=== PATIENT | male | born 2000 | race Caucasian/White ===

== ENCOUNTER 2019-12-13 22:24 | Inpatient (IN) | payer OTHER ==
[~2019-12-13] VITALS: Ht 177.8 cm; Wt 85.9 kg
[2019-12-13] MEDS ORDERED: PROPOFOL 1,000 MG/100 ML VIAL As Ordered ONE (22:47)
[2019-12-13] MEDS ORDERED: ETOMIDATE INJ 20MG/10ML VIAL IV ONE (22:49)
[2019-12-13] MEDS ORDERED: SUCCINYLCHOLINE INJ 200 MG/10 ML VIAL (J0330) IV ONE (22:50)
[2019-12-13] MEDS: propofoL 1,000 MG in IV 1 EA IV SCH ×2 (22:52→23:00)
[2019-12-13] MEDS: PROPOFOL 1,000 MG/100 ML VIAL IV SCH (23:06)
[2019-12-13 23:10] LABS: ABG BASE EXCESS -3.1 (-2.0-2.0); ABG HCO3 23.1 MEQ/L (22.0-26.0); ABG PARTIAL PRESSURE CO2 45.6 mmHg (35.0-45.0); ABG PARTIAL PRESSURE O2 141.3 mmHg (75.0-100.0); ABG TOTAL CO2 24.5 MEQ/L (22.0-29.0); ABG pH (ARTERIAL) 7.323 UNITS (7.350-7.450)
[2019-12-13 23:11] LABS: ABG O2 SATURATION 98.7 % (95.0-99.0); ABG STANDARD HCO3 21.9 MEQ/L (22.0-26.0)
[2019-12-13 23:13] VITALS: O2SAT 98
[2019-12-13] MEDS ORDERED: CHARCOAL ACTIVATED LIQUID 25 GM/120 ML BTL PO ONE (23:15)
[2019-12-13] MEDS ORDERED: NS 1,000 ML IV ONE (23:15)
[2019-12-13 23:24] LABS: BASO % 0.3 % (0.0-1.0); EOS % 0.6 % (0.0-3.0); HEMATOCRIT 46.2 % (42.0-52.0); HEMOGLOBIN 15.7 g/dl (13.5-17.5); LYMPH # 1.7 10^3/uL (1.5-5.0); LYMPH % 25.3 % (24.0-44.0); MEAN CORPUSCULAR HEMOGLOBIN 30.7 pg (27.0-33.0); MEAN CORPUSCULAR VOLUME 90.4 fl (80.0-96.0); MONO # 0.7 10^3/uL (0.0-0.8); MONO % 9.8 % (0.0-5.0); NEUTROPHILS # 4.3 10^3/uL (1.5-8.5); NEUTROPHILS % 63.6 % (36.0-66.0); PLATELET COUNT, AUTOMATED 267 10^3/uL (150-450); RED BLOOD COUNT 5.11 10^6/uL (4.30-6.10); WHITE BLOOD COUNT 6.8 10^3/uL (4.0-10.0)
[2019-12-13 23:40] LABS: ACETAMINOPHEN LEVEL < 2.0 UG/ML (10.0-30.0); ALBUMIN 4.2 GM/DL (3.2-5.2); ALT/SGPT 22 U/L (12-78); BILIRUBIN,DIRECT 0.2 MG/DL (0.0-0.2); BILIRUBIN,TOTAL 0.7 MG/DL (0.2-1.0); BLOOD UREA NITROGEN 13 MG/DL (7-18); CALCIUM LEVEL 8.4 MG/DL (8.5-10.1); CARBON DIOXIDE LEVEL 26 MEQ/L (21-32); CHLORIDE LEVEL 108 MEQ/L (98-107); CPK CREATINE PHOSPHOKINASE 121 U/L (39-308); CREATININE FOR GFR 1.18 MG/DL (0.70-1.30); ETHYL ALCOHOL (ETHANOL) 0.206 % (0.000-0.010); GLUCOSE, FASTING 82 MG/DL (70-100); SALICYLATE LEVEL < 1.7 MG/DL (5.0-30.0); SODIUM LEVEL 139 MEQ/L (136-145); TOTAL PROTEIN 7.7 GM/DL (6.4-8.2)
--- NOTE | 2019-12-13 23:43 | REPVR ---
PROCEDURE INFORMATION: Exam: XR Chest, 1 View Exam date and time: 12/13/2019 11:09 PM Age: 19 years old Clinical indication: Device placement; Other: Ett TECHNIQUE: Imaging protocol: XR of the chest Views: 1 view. COMPARISON: No relevant prior studies available. FINDINGS: Tubes, catheters and devices: Endotracheal tube lies 3 cm above the evin. Lungs: Lungs are diffusely hypoexpanded. No evidence of pulmonary edema. No focal consolidation or parenchymal lung mass. Mild patchy atelectasis Pleural space: No pleural effusion. No pneumothorax. Heart/Mediastinum: Heart and mediastinal contours are normal, given the degree of inflation. Bones/joints: Osseous structures show no concerning abnormality. Soft tissues: No asymmetry of the extrathoracic soft tissues. IMPRESSION: 1. Hypoexpanded lungs, with increase interstitial markings or atelectasis. 2. Endotracheal tube 3 cm above the evin Electronically signed by: Nolberto Rothman On 12/13/2019 23:44:01 PM
[2019-12-14] VITALS (7 sets, daily range): BP systolic 95–139; BP diastolic 48–66
[2019-12-14 00:05] LABS: AMPHETAMINES LEVEL URINE NEGATIVE (NEGATIVE); BARBITURATES URINE NEGATIVE (NEGATIVE); BENZODIAZEPINES URINE NEGATIVE (NEGATIVE); CANNABINOIDS URINE NEGATIVE (NEGATIVE); COCAINE METABOLITE URINE NEGATIVE (NEGATIVE); METHADONE URINE NEGATIVE (NEGATIVE); OPIATES URINE NEGATIVE (NEGATIVE); PHENCYCLIDINE URINE POSITIVE (NEGATIVE)
[2019-12-14] MEDS ORDERED: PROPOFOL 1,000 MG/100 ML VIAL As Ordered ONE (00:34)
[2019-12-14] MEDS ORDERED: NS 1,000 ML IV SCH (00:51)
[2019-12-14] MEDS ORDERED: MIDAZOLAM INJ 2MG/2ML VIAL (J2250 PER 1MG) IV PRN (01:00)
[2019-12-14] MEDS ORDERED: GLUCAGON INJ 1MG VIAL SC PRN (01:15)
[2019-12-14] MEDS ORDERED: DEXTROSE 50% 50 ML SYRINGE IV PRN (01:15)
[2019-12-14] MEDS ORDERED: GLUCOSE 4GM CHEW TABLET PO PRN (01:15)
[2019-12-14 02:47] LABS: PROTHROMBIN TIME 13.4 SECONDS (11.8-14.0)
[2019-12-14 02:54] LABS: ABG pH (ARTERIAL) 7.321 UNITS (7.350-7.450)
[2019-12-14 02:55] LABS: ABG BASE EXCESS -3.2 (-2.0-2.0); ABG HCO3 23.1 MEQ/L (22.0-26.0); ABG PARTIAL PRESSURE CO2 45.8 mmHg (35.0-45.0); ABG PARTIAL PRESSURE O2 164.9 mmHg (75.0-100.0); ABG STANDARD HCO3 21.9 MEQ/L (22.0-26.0); ABG TOTAL CO2 24.5 MEQ/L (22.0-29.0)
[2019-12-14] MEDS: propofoL 1,000 MG in IV 1 EA IV SCH ×3 (03:11→09:04)
[2019-12-14 05:48] LABS: HEMATOCRIT 45.6 % (42.0-52.0); HEMOGLOBIN 15.2 g/dl (13.5-17.5); MEAN CORPUSCULAR HEMOGLOBIN 30.5 pg (27.0-33.0); MEAN CORPUSCULAR HGB CONC 33.3 g/dl (32.0-36.5); MEAN CORPUSCULAR VOLUME 91.6 fl (80.0-96.0); PLATELET COUNT, AUTOMATED 283 10^3/uL (150-450); RED BLOOD COUNT 4.98 10^6/uL (4.30-6.10); WHITE BLOOD COUNT 6.7 10^3/uL (4.0-10.0)
[2019-12-14] MEDS ORDERED: HEPARIN SOD (PORCINE) 5000UNITS/ML 1ML VIAL/SYRINGE SC SCH (06:00)
[2019-12-14] MEDS: HumaLOG INSULIN (NovoLOG) PER UNIT SC SCH ×2 (06:00)
[2019-12-14 06:29] LABS: ALBUMIN 3.9 GM/DL (3.2-5.2); ALT/SGPT 21 U/L (12-78); BLOOD UREA NITROGEN 12 MG/DL (7-18); CALCIUM LEVEL 8.5 MG/DL (8.5-10.1); CARBON DIOXIDE LEVEL 25 MEQ/L (21-32); CHLORIDE LEVEL 108 MEQ/L (98-107); CHOLESTEROL LEVEL 121 MG/DL (< 200); CPK CREATINE PHOSPHOKINASE 179 U/L (39-308); CREATININE FOR GFR 1.21 MG/DL (0.70-1.30); GLUCOSE, FASTING 97 MG/DL (70-100); LDH LACTATE DEHYDROGENASE 174 U/L (87-241); PHOSPHORUS LEVEL 4.9 MG/DL (2.5-4.9); POTASSIUM SERUM 4.1 MEQ/L (3.5-5.1); SODIUM LEVEL 140 MEQ/L (136-145); TOTAL PROTEIN 6.9 GM/DL (6.4-8.2); TRIGLYCERIDES LEVEL 348 MG/DL (<150)
[2019-12-14] MEDS ORDERED: ALBUTEROL SULFATE 2.5 MG/0.5 ML INH NEB SOLN NEB SCH (08:00)
[2019-12-14] MEDS ORDERED: CHLORHEXIDINE GLUCONATE 0.12 % 15ML UDC (PERIDEX ORAL RINSE) MT SCH (09:00)
[2019-12-14] MEDS ORDERED: PANTOPRAZOLE 40MG VIAL (C9113 PER 1) IV SCH (09:00)
[2019-12-14] MEDS ORDERED: cefTRIAXone SOD 1 GM in D5W MINI-BAG PLUS 50 ML IV SCH (09:00)
[2019-12-14] MEDS ORDERED: MOM 30ML SUSPENSION UDC PO PRN (17:30)
[2019-12-14] MEDS ORDERED: MAALOX 30 ML SUSP *UDC PO PRN (17:30)
[2019-12-14] MEDS ORDERED: ACETAMINOPHEN TAB 650MG DOSE (2X325MG) PO PRN (17:30)
[2019-12-14] MEDS ORDERED: traZODone 50 MG TAB PO PRN (17:30)
--- NOTE | 2019-12-24 14:41 | MHCR ---
DATE OF CONSULTATION: 12/14/2019 This is a consultation note for Dr. Miles, who asked me to see the patient. Chart is reviewed, patient is interviewed. CHIEF COMPLAINT: He has taken an overdose. 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 He was brought in as he was found to be unresponsive apparently, this is after he had taken a considerable amount of alcohol, and overdosed on Coricidin cough tablets, says does not remember much of that. On further inquiry, says had been playing on his [employer], remembers that, says remembers drinking, and somewhat vaguely remembers taking the pills. He thinks he took about 12 pills. He says does not remember much after that, other than waking up in the hospital. Denies he was trying to kill himself. Suggests was trying to get high, and that a friend of his had told him that he could get high using the Coricidin, he says it is not the first time he had used it, had first used it several months ago, and does not remember the last time he did, but not this month, says had never used it with alcohol. Says has been stressed, but suggests these are mostly regular work related stressors. 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 Says may get somewhat anxious or have his mind race when trying to get to sleep. Denies feeling depressed. Appetite has been okay. Says has family, including his mother, in [place], is in contact with her, and she is apparently aware that he is here. He suggests he takes alcohol irregularly, not very often, and that this has never got him into any difficulties. Patient was basically not very responsive when first seen by the clinicians, to the point where he developed respiratory failure, was intubated, and has been extubated earlier today. PAST PSYCHIATRIC HISTORY: No history of inpatient hospitalizations or suicide attempts. Does not see any outpatient therapist or counselor either. SUBSTANCE ABUSE HISTORY: Has never been treated for it, per the patient, but has used Coricidin in the past few months, first used it a few months ago. He does not think he has ever taken these many pills in the past. MEDICAL HISTORY: None significantly, other than this overdose, which required his being intubated. He has just been extubated this morning. FAMILY HISTORY: History of substance abuse. Says has members on his mothers side of the family who have had trouble with alcohol. SOCIAL HISTORY: Says had a good childhood, and graduated high school but did not go into details. He is in the , says is due to remain there until 2021. Says would like to go to further education if he can. Says has local supports here. MENTAL STATUS EXAMINATION: He is lying in bed. Generally cooperative, though possibly a bit guarded. No agitation, no psychomotor retardation, he is coherent, affect restricted in range, does not show much reactivity. Denies any suicidal thoughts or intents, no homicidal ideas or intents, no evidence of any psychosis. No fluctuation of consciousness. He is alert, oriented to time, place, and person. Cognition is grossly intact. His judgment is questionable, insight questionable at this point as well. VITAL SIGNS: Blood pressure 139/66, pulse 95, temperature 98.2. IMPRESSION: Adjustment disorder with disturbance of emotions and conduct. Status post overdose. Coricidin use disorder. Consider alcohol use disorder. He has been stressed, usual stressors at work. He is on quarantine because he just returned from [place], which was work related, says was tested for COVID and is negative. Does remember drinking, taking the Coricidin, but somewhat vaguely. Denies he was trying to kill himself. Suggests has used Coricidin in the recent past. RECOMMENDATIONS: Inpatient psychiatric hospitalization for further management and stabilization. I would anticipate a short stay, but it is preferable that he is admitted so that he can be further assessed. One of the concerns is that he may well be minimizing his difficulties. Thank you for the consult. If you have any questions, please call. The assessment took 30 minutes. NICK
--- NOTE | 2019-12-31 19:07 | ECGEPIP ---
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
--- NOTE | 2020-01-08 14:06 | ECGEPIP ---
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
--- NOTE | 2020-01-13 09:54 | REP ---
PORTABLE CHEST X-RAY: SINGLE VIEW HISTORY: Intubated patient. COMPARISON: 12/13/2019. FINDINGS: Nasogastric tube has been inserted and is seen coursing in the stomach and the left upper quadrant. Endotracheal tube remains in good position at the level of the proximal clavicles. The patient is rotated slightly to the left for the current exposure. Monitoring electrodes are seen. The lungs remain well- inflated. There is increased opacity in the left upper lobe suggesting an infiltrate. Overall, there is improved aeration. IMPRESSION: Infiltrate suspected, left upper lobe. Endotracheal and nasogastric tubes in good position. MTDD
--- NOTE | 2020-01-29 06:59 | CCN ---
DATE: 12/14/2019 The patient is seen once again in the intensive care unit intubated and mechanically ventilated. He is making spontaneous efforts when propofol is weaned. His current temperature is 99.4, pulse rate 97, respirations 18 delivered, blood pressure 127/65. Intake and output for the past 24 hours: 663 in, 225 out. At bedside he is ill appearing but in no apparent distress. His mucosae are moist. The endotracheal tube is at 23 cm, an 8.5 tube. There is an orogastric tube stained with charcoal in good position. The neck is supple. No meningismus. No jugular venous distention. His heart sounds are regular without appreciable murmur. Breath sounds are clear to auscultation in all tovar, improvement over 12 hours earlier. The chest is symmetric and moves symmetrically. Abdomen is soft. There are bowel sounds in the right lower quadrant. No palpable mass. Extremities show no significant edema. There is no deformity. Peripheral pulses reasonably palpable. Updated diagnostic studies: His white count is 6.7, hemoglobin 15.2, hematocrit 45.6, platelet count 285,000. Sodium is 140, potassium 4.1, chloride 108, CO2 of 25, BUN 12, creatinine 1.21, glucose 97. Arterial blood gases showed pH 7.23, pCO2 of 46, pO2 of 164. His INR is 1. Chest imaging shows improvement in the bilateral infiltrates appreciated on admission earlier. Tubes and lines are in good position. The primary problem requiring critical attention: 1. Polysubstance overdose. He has responded to hydration and charcoal. His tachycardia has resolved. EKG continues to show sinus rhythm with normal QT interval. 2. Acute respiratory failure. We will proceed with weaning and extubate if able. 3. Possible suicide attempt. I spoke with Dr. Munson in psychiatry, who has kindly agreed to see him and evaluate him for inpatient psychiatric care. 4. Deep venous thrombosis (DVT) and ulcer prophylaxis are in place. Glycemic control is acceptable. The patient's condition remains critical. Prognosis is guarded. One hour and 8 minutes was spent in the provision of bedside critical care and coordination, exclusive of any time for procedures. [facility]ITAL[facility]
--- NOTE | 2020-01-29 07:04 | HPE ---
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 In the emergency department, he was found to have a depressed level of consciousness, an endotracheal tube was placed to protect his airway, his heart rate was elevated and he was quite confused, sleepy, intermittently able to respond to questions. Activated charcoal has been administered for two doses. His temperature is 97, pulse rate 99, respirations 16/16 delivered, blood pressure 117/67. HEENT: His pupils are small and react to light. His mucosa are moist. He is hypognathic. There is an endotracheal tube at 22 cm and an orogastric tube in place with charcoal. Heart sounds are regular without appreciable murmur. Breath sounds are coarse, clear. Abdomen is soft. Bowel sounds are appreciated in the right lower quadrant. Extremities are cool, pulses diminished. DIAGNOSTIC STUDIES: His white cell count is 6.8, hemoglobin 15.7, hematocrit 46.2, platelet count 267,000, sodium 139, potassium 4.0, chloride 108, CO2 26, BUN 13, creatinine 1.18, glucose 82, calcium 8.4, bilirubin 0.7, direct bilirubin 0.2, AST 19, ALT 22, alkaline phosphatase 67, CPK 121, protein 7.7, albumin 4.2, his TSH is 1.1. Toxicology screen showed an alcohol level of 0.206 and was positive for phencyclidine. His arterial blood gas shows a pH of 7.32, pCO2 45, pO2 141. Chest x-ray shows perihilar infiltrates with air bronchograms and tracheal tube is in good position. Electrocardiogram shows sinus tachycardia with normal QT interval. The primary problem requiring critical attention is: 1. Polysubstance overdose. Charcoal has been given. Will initiate supportive care. 2. Acute respiratory failure. Will initiate mechanical ventilation and follow arterial blood gases. 3. Abnormal x-rays. Possibly an aspiration event. Will administer empiric Rocephin and check cultures of his sputum. 4. Deep venous thrombosis (DVT) prophylaxis will be addressed with sequential, hose, and subcutaneous heparin. 5. Ulcer prophylaxis will be addressed with Protonix. 6. Glycemic control will be addressed with finger stick blood sugars and coverage. The patients condition is critical. Prognosis is guarded. I have reviewed the case with the emergency department physician and staff and have contacted the intensive care unit (ICU) team to coordinate admission there. Will now arrange for transfer of the patient to the intensive care unit. One hour and 47 minutes was spent in the provision of bedside critical care and coordination, excluding procedure time. NCIK
[2020-12-12] MEDS ORDERED: propofoL 1,000 MG in IV 1 EA IV SCH (22:51)
== END 2019-12-14 17:40 | DRG 917 ==
LOC: EDBD 22:24 → M ED 22:24 → M ED INP 12-14 00:51 → M ICU 12-14 02:19
PROVIDERS: ADMIT Internal Medicine Pulmonary Disease; ATTEND Internal Medicine Pulmonary Disease
PROC: 5A1935Z Respiratory Ventilation, Less than 24 Consecutive Hours (ICD-10-PCS; principal; 2019-12-14)
DX: T48.4X4A Poisoning by expectorants, undetermined, initial encounter (principal); J96.00 Acute respiratory failure, unspecified whether with hypoxia or hypercapnia; F43.25 Adjustment disorder with mixed disturbance of emotions and conduct; F10.10 Alcohol abuse, uncomplicated

== ENCOUNTER 2019-12-14 17:23 | Inpatient (IN) | payer OTHER ==
[~2019-12-14] VITALS: Ht 182.9 cm; Wt 86.1 kg
[2019-12-14] MEDS ORDERED: MAALOX 30 ML SUSP *UDC PO PRN (17:45)
[2019-12-14] MEDS ORDERED: traZODone 50 MG TAB PO PRN (17:45)
[2019-12-14] MEDS ORDERED: MOM 30ML SUSPENSION UDC PO PRN (17:45)
[2019-12-14] MEDS ORDERED: ACETAMINOPHEN TAB 650MG DOSE (2X325MG) PO PRN (17:45)
[2019-12-14 17:59] VITALS: BP 143/83
--- NOTE | 2019-12-15 14:43 | HPEPDOC ---
[facility] Medical History & Physical Date of Admission Dec 14, 2019 Date of Service: Dec 15, 2019 Attending Physician: Antwon Munson History and Physical CHIEF COMPLAINT: overdose HISTORY OF PRESENT ILLNESS: 19 y/o M with no significant PMHx presents with overdose. Notes he was drunk with his friends and they decided to take cough medicine. He is currently in the [facility] for close monitoring due to overdose. Pt denies CP/SOB/palpitations. No N/V/Abd pain. Denies any complaints. PAST MEDICAL HISTORY: None PAST SURGICAL HISTORY: None SOCIAL HISTORY: +alcohol. denies tobacco or illicit drugs FAMILY HISTORY: Noncontributory ALLERGIES: Please see below. REVIEW OF SYSTEMS: HEENT: Denies sore throat/headache CARDIOVASCULAR: Denies chest pain/palpitations RESPIRATORY: Denies shortness of breath/cough GASTROINTESTINAL: denies nausea/vomiting GENITOURINARY: Denies dysuria/urinary urgency. MUSCULOSKELETAL: Denies myalgias/arthralgias NEUROLOGICAL: Denies any focal weakness HOME MEDICATIONS: Please see below. PHYSICAL EXAMINATION: Vitals: (see below) General: No acute distress, laying comfortably in bed. HEENT: Moist mucous membranes. Neck: No JVD or lymphadenopathy Cardiac: RRR, No murmurs Pulm: Clear to auscultation b/l. No wheezing, rhonchi Abd: NT/ND + BS Ext: No edema or cyanosis LABORATORY DATA: See below. ASSESSMENT/PLAN: 1. Overdose: management per psychiatry. 2. Alcohol abuse - cessation counseling 3. Hypertriglyceridemia - Low fat/cholesterol diet. Thank you for the consultation. Please call with questions. Vital Signs Vital Signs Date Time Temp Pulse Resp B/P (MAP) Pulse Ox O2 Delivery O2 Flow Rate FiO2 12/14/19 17:59 98.2 69 16 143/83 (103) 95 Room Air Laboratory Data Labs 24H Laboratory Tests Test 12/13/19 22:36 12/14/19 05:39 Blood Urea Nitrogen 13 MG/DL (7-18) 12 MG/DL (7-18) Creatinine 1.18 MG/DL (0.70-1.30) 1.21 MG/DL (0.70-1.30) Fasting Glucose 82 MG/DL (70-100) 97 MG/DL (70-100) Calcium Level 8.4 MG/DL (8.5-10.1) L 8.5 MG/DL (8.5-10.1) Total Bilirubin 0.7 MG/DL (0.2-1.0) 1.0 MG/DL (0.2-1.0) Aspartate Amino Transf (AST/SGOT) 19 U/L (7-37) 21 U/L (7-37) Alanine Aminotransferase (ALT/SGPT) 22 U/L (12-78) 21 U/L (12-78) Total Protein 7.7 GM/DL (6.4-8.2) 6.9 GM/DL (6.4-8.2) Sodium Level 139 MEQ/L (136-145) 140 MEQ/L (136-145) Albumin 4.2 GM/DL (3.2-5.2) 3.9 GM/DL (3.2-5.2) Alkaline Phosphatase 67 U/L (45-117) 63 U/L (45-117) Potassium Level 4.0 MEQ/L (3.5-5.1) 4.1 MEQ/L (3.5-5.1) Thyroid Stimulating Hormone (TSH) 1.110 uIU/ML (0.463-3.98) Chloride Level 108 MEQ/L (98-107) H 108 MEQ/L (98-107) H Carbon Dioxide Level 26 MEQ/L (21-32) 25 MEQ/L (21-32) Anion Gap 5 MEQ/L (8-16) L 7 MEQ/L (8-16) L Laboratory Tests 12/13/19 22:36 12/14/19 05:39 Home Medications Unable to Obtain Active Prescriptions or Reported Meds Allergies Coded Allergies: Unobtainable (Unverified , 12/13/19) A-FIB/CHADSVASC A-FIB History Current/History of A-Fib/PAF?: No SYKLER CORRALES MD Dec 15, 2019 14:43
[2019-12-15 17:43] VITALS: BP 136/80
--- NOTE | 2019-12-15 17:56 | MHIPNPDOC ---
[facility] Progress Note Progress Note DATE OF SERVICE: 12/15/19 HISTORY: Patient is a 19 year old Single, [employer] Male who presented to ED after taken an overdose of Coricidin "to get high". He reported in today's individual therapy that he is unaware of how he was transported to the ED. States "I just woke up here, I don't know what happened" According to Psychiatric Assessment by Dr. Munson, patient was found unresponsive by his friends and was sent by EMS to [facility]. Patient denies that he was attempting suicide VITAL SIGNS: See below. NEW TEST RESULTS: CURRENT MEDICATIONS: See below. MENTAL STATUS EXAMINATION: Patient is a 19-year old male, who is currently reporting no depressive or anxiety symptoms Speech: Is normal rate tone and volume Language skills are Good Thought processes including: He is reality based, linear and goal oriented Thought content: Negative Abstract reasoning, and computation: Good Description of associations: Good Description of abnormal or psychotic thoughts: Negative Judgment: Fair Insight: Fair Orientation: Alert and oriented x 3 Recent and remote memory: Intact Attention span and concentration: Good Language: Good Fund of knowledge: Good Mood: euthymic Affect: euthymic DIAGNOSES: 1. Adjustment Disorder with mixed disturbances of emotions and conduct 2. Other psychoactive substance use disorder 3. Alcohol Use Disorder 4. Status post overdose ASSESSMENT: Patient seen today with no depressive symptoms, no anxiety symptoms. He is not psychotic, manic, delusional or voices auditory of visual hallucinations. He states that he took "Triple C to get high" and that he was unaware that he was found unresponsive. He reports no depressive symptoms prior to this, states that he has taken Triple C's one other time in May. No reports of past suicidal ideation, gestures or attempts. MANAGEMENT PLAN: No medications ordered at this time. Patient will be discharged tomorrow. TIME SPENT: 35 minutes. Vital Signs Vital Signs Date Time Temp Pulse Resp B/P (MAP) Pulse Ox O2 Delivery O2 Flow Rate FiO2 12/14/19 17:59 98.2 69 16 143/83 (103) 95 Room Air Current Medications Current Medications Medications (Trade) Dose Ordered Sig/Chemo Route PRN Reason Start Time Stop Time Status Last Admin Dose Admin Acetaminophen (Tylenol Tab) 650 mg Q6HP PRN PO HEADACHE or DISCOMFORT 12/14/19 17:45 Al Hydrox/Mg Hydrox/Simethicone (Mylanta) 30 ml Q4HP PRN PO HEARTBURN/INDIGESTION 12/14/19 17:45 Magnesium Hydroxide (Milk Of Magnesia) 30 ml DAILYPRN PRN PO CONSTIPATION 12/14/19 17:45 Trazodone HCl (Desyrel) 50 mg QHSP PRN PO INSOMNIA 12/14/19 17:45 Allergies Coded Allergies: Unobtainable (Unverified , 12/13/19) DONNA BEASLEY NP Dec 15, 2019 17:56
[2019-12-16 06:55] VITALS: BP 112/62
--- NOTE | 2019-12-26 15:03 | MHDS ---
DATE OF ADMISSION: 12/14/2019 DATE OF DISCHARGE: 12/16/2019 DISCHARGE DIAGNOSIS: Adjustment disorder with mixed disturbance of emotion and conduct; substance use disorder; alcohol use disorder status post overdose. 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 He reported that he was unaware of how he was transported to the emergency department (ED). He states, "I just woke up here. I don't know what happened." According to the assessment by Dr. Munson, the patient was found unresponsive by his friends and was sent by EMS to [facility]. It is believed that this was not a suicide attempt. He is admitted to inpatient mental health unit for close monitoring due to the overdose. CONSULTANTS INVOLVED: Please see medical history and physical by Dr. Munson on 12/15/2019. PROCEDURES AND TREATMENT: 1. Individual and group psychotherapy. 2. Psychopharmacologic management. 3. Communication with [place] where patient resides was conducted by social work department for the purpose of clarification and discharge planning. HOSPITAL COURSE AND TREATMENT: The patient was monitored for any medical issues. The patient denies chest pain, shortness of breath, palpitations. No nausea, vomiting. No abdominal pain. No complaints. He has no medical history, no past surgical history. He denied depression in history of depression and no history of anxiety. He reports that he was trying to get high and he was drinking. He states that his friends were doing the same thing. The patient reports he was drinking. He reports his friends were doing the same thing. We discussed how using medication like this can cause damage to his body. He verbalized understanding and reports that this is not the first time. He is returning to [place]. 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 DISCHARGE ASSESSMENT: The patient is stable for discharge today. He is not reporting any self-harm thoughts, had denied it throughout his hospitalization. He denies depression, denies anxiety and denies suicidal ideation, planning or intent. No reports of homicidal ideation, planning or intent. MENTAL STATUS EXAMINATION: The patient is a 19-year-old male currently reporting no depressive anxiety symptoms. Speech is normal rate, tone and volume. He is dressed appropriately, calm and cooperative. Hygiene and grooming is good. Eye contact is good. He has no psychomotor agitation or retardation. Thought process is linear, reality based and goal oriented. Thought content is negative. Abstract reasoning and comprehension is good. No associations, no psychiatric abnormalities or psychosis. He is negative for any jewell, paranoia, delusions, auditory or visual hallucinations. His insight and judgment is fair. Orientation: Alert and oriented times 3. Memory is intact. Good concentration. Good fund of knowledge. His mood and affect are euthymic. The patient was seen today with no depressive symptoms, no anxiety symptoms, reporting again that he was taking triple Cs (Coricidin) to get high and did not realize that he went unresponsive. MEDICATIONS PRESCRIBED: The patient was not prescribed any medications to him. FOLLOWUP: Patient is following up with [facility]. Amount of time spent in the coordination and care of this patient was approximately 30 minutes. VITAL SIGNS: Blood pressure 112/62, respirations 14, heart rate 65, 96% on room air. Again, this patient was admitted on 12/14/2019. Date of discharge is 12/16/2019. [facility]
== END 2019-12-16 11:25 | disposition home or self-care (01) | DRG 882 ==
LOC: M PSY 17:50
PROVIDERS: ADMIT Psychiatry & Neurology Addiction Medicine; ATTEND Psychiatry & Neurology Psychiatry
DX: F43.25 Adjustment disorder with mixed disturbance of emotions and conduct (principal); F10.10 Alcohol abuse, uncomplicated; E78.1 Pure hyperglyceridemia